=== PATIENT | female | born 1965 | race Caucasian/White ===

== ENCOUNTER 2021-10-07 17:04 | Outpatient (CLI) | payer OTHER, SELFPAY ==
--- NOTE | ~2021-10-07 | MM_ITS ---
EXAMINATION: MM screening lidia BI w markos HISTORY: Screening mammogram TECHNIQUE: Craniocaudal and mediolateral oblique 3-D tomosynthesis images were obtained and synthetic 2-D images were generated. CAD analysis was submitted and interpreted. COMPARISON: 11/07/2019, 09/07/2014, 08/22/2013 bilateral screening mammogram examinations BREAST PARENCHYMAL COMPOSITION: The breasts are almost entirely fatty. FINDINGS: There is no evidence of suspicious mass, calcification, or architectural distortion to sugg est malignancy in either breast. There has been no suspicious interval change. IMPRESSION: 1. No mammographic evidence of malignancy. 2. Recommend routine screening mammography in one year. BI-RADS Category 1: Negative Reviewed, dictated and finalized at location A. RY MANAGER
== END 2021-10-07 17:05 | disposition home or self-care (01) ==
PROVIDERS: PCP Nurse Practitioner Family; Visit Provider Nurse Practitioner Family
DX: Z12.31 Encounter for screening mammogram for malignant neoplasm of breast (principal)
CPT/HCPCS: 77063; 77067

== ENCOUNTER 2022-03-19 08:08 | Outpatient (CLI) | payer OTHER, SELFPAY ==
--- NOTE | ~2022-03-19 | US_ITS ---
EXAMINATION: US abdomen complete DATE: 03/19/2022 08:55 INDICATION: Abdominal cramping TECHNIQUE: Multiple grayscale and Doppler ultrasound images of the abdomen were obtained. COMPARISON: None FINDINGS: The pancreatic head and body are normal in appearance. The pancreatic tail is not visualized. Abdomi nal aorta is normal in caliber measuring 2.1 cm proximally and tapering to 1.4 cm distally. Portions of the mid aorta are obscured by shadowing bowel gas. The small visualized portion of the proximal in ferior vena cava is normal. Liver has normal echogenicity and contour, with a smooth surface. No live r lesion identified. No intrahepatic biliary duct dilation suspected. Portal venous flow was seen in the hepatopetal, normal direction and has normal Doppler waveform. Mobile echogenic sludge and shadow ing gallstones within the otherwise normal-appearing gallbladder with normal wall thickness. Sonograp hic Monique sign was reported as negative by the mixing pan tender. The common bile duct measures 3 mm in di ameter which is normal. There is normal renal contour and echogenicity bilaterally. The right kidney measures 10.5 x 3.9 x 4.6 cm and the left 9.8 x 4.8 x 5.0 cm. There are no focal renal lesions ident ified. There is no hydronephrosis. Spleen is normal measuring 9.8 cm in maximal length. IMPRESSION: 1. Cholelithiasis. Reviewed, dictated and finalized at location B. IMPRESSION: 1. Cholelithiasis.
== END 2022-03-19 08:09 | disposition home or self-care (01) ==
PROVIDERS: PCP Nurse Practitioner Family; Visit Provider Physician Assistant
DX: R10.9 Unspecified abdominal pain (principal); K80.20 Calculus of gallbladder without cholecystitis without obstruction
CPT/HCPCS: 76700

== ENCOUNTER 2022-07-04 12:45 | Inpatient (IN) | payer OTHER, SELFPAY ==
[2022-07-04] VITALS (9 sets, daily range): BP systolic 128–183; BP diastolic 58–88; PULSE 54–66; RESP 16–20; TEMP 36.2–36.9; O2SAT 97–100
--- NOTE | ~2022-07-04 | US_ITS ---
US abdomen limited DATE: 07/04/2022 13:45 INDICATION: Abdominal pain TECHNIQUE: Real-time imaging of liver, pancreas, gallbladder COMPARISON: 03/19/2022 abdominal ultrasound examination FINDINGS: No hepatic space-occupying mass lesion is evident. Normal hepatopedal portal venous flow di rection. The pancreatic head, neck and body appear normal. The pancreatic tail is obscured by bowel g as. There is a prominent stone at the neck of the gallbladder. Borderline gallbladder wall thickening. No pericholecystic fluid. Negative sonographic Monique's sign. Common bile duct measures 5.7 mm, within upper limits of normal. IMPRESSION: Cholelithiasis Reviewed, dictated and finalized at Location [facility]. Reviewed, dictated and finalized at location A. IMPRESSION: Cholelithiasis
--- NOTE | ~2022-07-04 | CT_ITS ---
EXAMINATION: CT abdomen pelvis w con DATE: 07/04/2022 14:20 INDICATION: abd pain TECHNIQUE: Computed tomography (CT) of the abdomen and pelvis was performed with 100 mL Omnipaque-350 intravenous contrast. Automated exposure control and iterative reconstruction technique were employe d. The dose-length product was 1210.91 mGy-cm. COMPARISON: Ultrasound abdomen, same date. FINDINGS: Lower thorax: Coronary artery calcification. Small hiatal hernia. Liver: Normal. Biliary/Gallbladder: Distended gallbladder. No definite pericholecystic fluid or wall thickening. Cho lelithiasis. Likely stone in the gallbladder neck. No bile duct dilation. Pancreas: No mass or duct dilation. Spleen: Normal. Adrenals:No mass. Kidneys: No mass, stone, or hydronephrosis. GI tract: No small or large bowel dilation. Normal appendix. Diverticulosis without diverticulitis. Mesentery/Peritoneum: No ascites, mass, or free air. Retroperitoneum: No mass. Pelvis: Partially distended urinary bladder slightly eccentric wall thickening. Minimal adjacent infl ammatory change. Remaining pelvic organs are within normal limits. Soft Tissues: Uncomplicated small fat-containing umbilical hernia. Bones: No acute osseous finding. IMPRESSION: Gallbladder hydrops, cholelithiasis, likely stone in the gallbladder neck. No significant gallbladder inflammatory change. These findings may represent early cholecystitis in the appropriate clinical co ntext. Eccentric urinary bladder wall thickening mild inflammation, correlate for clinical findings o f cystitis and consider referral for outpatient cystoscopy. Reviewed, dictated and finalized at location K. IMPRESSION: Gallbladder hydrops, cholelithiasis, likely stone in the gallbladder neck. No s ignificant gallbladder inflammatory change. These findings may represent early cholecystitis in the appropriate clinical context. Eccentric urinary bladder wa ll thickening mild inflammation, correlate for clinical findings of cystitis an d consider referral for outpatient cystoscopy.
[2022-07-04 13:14] LABS: Basophils Absolute Auto 0.1 K/mm3 (0.0-0.1); Basophils Percent Auto 0.3 % (0.2-1.2); Eosinophils Percent Auto 0.1 % (0-4.4); Hematocrit 40.8 % (37.0-47.0); Hemoglobin 13.6 g/dL (12.0-15.0); Immature Granulocyte Absolute 0.08 K/mm3 (0.00-0.031); Immature Granulocyte Percent A 0.5 % (0-0.5); Lymphocytes Absolute Auto 1.59 K/mm3 (0.9-3.2); Lymphocytes Percent Auto 9.4 % (18.3-44.2); Mean Corpuscular HGB Conc 33.3 g/dl (32-36); Mean Corpuscular Hemoglobin 29.2 pg (26-34); Mean Corpuscular Volume 87.6 fl (80-100); Mean Platelet Volume 9.9 fl (7.4-10.4); Monocytes Absolute Auto 0.6 K/mm3 (0.1-0.6); Monocytes Percent Auto 3.6 % (2.6-8.5); Neutrophils Absolute Auto 14.5 K/mm3 (1.3-6.7); Neutrophils Percent Auto 86.1 % (45.5-73.1); Platelet Count Result 293 k/mm3 (150-375); Red Blood Count 4.66 M/mm3 (4.2-5.4); Red Cell Distribution Width 14.2 % (11.5-14.5); White Blood Count 16.9 K/mm3 (4.5-10.0)
--- NOTE | 2022-07-04 13:15 | ED.GENADULT ---
HPI - General Adult General Chief complaint: Nausea/Vomiting/Diarrhea Stated complaint: nausea/vomiting Time Seen by Provider: 07/04/22 12:58 Source: RN notes reviewed History of Present Illness HPI narrative: Patient presents emergency department from home for abdominal pain. Patient states symptoms began 2 days ago. States pain is located epigastric and right upper quadrant described as sharp and stabbing and radiates around to the back. States has been associate with nausea vomiting. Patient states she was diagnosed with gallstones back in February and this feels similar to previous gallbladder attacks. States she tried taking ibuprofen at home with no relief. She denies any fevers or chills chest pain shortness of breath diarrhea or any other symptoms Related Data Allergies Allergy/AdvReac Type Severity Reaction Status Date / Time No Known Allergies Allergy Verified 07/04/22 13:42 Review of Systems Review of Systems: Gen.: Denies fevers or chills ENT: Denies congestion Respiratory: Denies shortness of breath or cough CV: Denies chest pain or palpitations GI: See HPI Musculoskeletal: Denies back pain or muscle pain Neuro: Denies numbness, tingling, weakness or focal weakness Skin: Denies rash Except as documented, all other systems reviewed and negative [facility] Past Medical History Medical History (Updated 07/04/22 @ 16:46 by Efren Winter DO) Cholelithiasis Social History Social History (Updated 07/04/22 @ 13:16 by Efren Winter DO) Smoking status: Never smoker Exam Narrative: APPEARANCE: No acute distress, nontoxic, resting in bed HEENT: Normocephalic, atraumatic, OMM RESPIRATORY: No respiratory distress, clear to auscultation bilaterally with no rhonchi wheezing or rales CARDIOVASCULAR: RRR s murmur ABDOMINAL: Soft nondistended tender palpation epigastric right upper quadrant no tenderness left upper quadrant, left lower quadrant right lower quadrant no rebound or guarding MUSCULOSKELETAl: Moves all extremities. No clubbing, cyanosis or edema. NEURO: Awake and alert. Following commands, speech normal, no focal deficits SKIN:: Warm, dry. Normal Color PSYCHIATRIC: Normal affect/mood Course Course Emergency Course: Discussed with Dr. Santa patient initially with improved pain control and plan to discharge with Cipro and follow-up as outpatient Intubated to take Cipro and had increased episode of abdominal pain and vomiting will admit at this time Discussed with Dr. Santa agrees to consult plan for Zosyn Discussed with RAFAELA Laguerre for Dr. Reid agrees with admission Discussed with patient and family results of workup and diagnosis. Discussed need for admission. Patient and family understand and agree to current treatment plan Vital Signs Vital signs: Vital Signs Temperature 97.6 F 07/04/22 12:48 Pulse Rate 66 07/04/22 12:48 Respiratory Rate 16 07/04/22 12:48 Blood Pressure 183/88 H 07/04/22 12:48 Pulse Oximetry 98 07/04/22 12:48 Temperature 97.6 F 07/04/22 12:48 Pulse Rate 65 07/04/22 16:34 Respiratory Rate 18 07/04/22 16:30 Blood Pressure 147/77 H 07/04/22 16:34 Pulse Oximetry 98 07/04/22 16:30 Medical Decision Making Vital Signs Vital Signs: Vital Signs Temperature 97.6 F 07/04/22 12:48 Pulse Rate 66 07/04/22 12:48 Respiratory Rate 16 07/04/22 12:48 Blood Pressure 183/88 H 07/04/22 12:48 Pulse Oximetry 98 07/04/22 12:48 Temperature 97.6 F 07/04/22 12:48 Pulse Rate 65 07/04/22 16:34 Respiratory Rate 18 07/04/22 16:30 Blood Pressure 147/77 H 07/04/22 16:34 Pulse Oximetry 98 07/04/22 16:30 Lab Data Result diagrams: 07/04/22 13:06 07/04/22 13:06 Labs: Lab Results 07/04/22 07/04/22 07/04/22 Range/Units 13:06 13:06 13:06 WBC 16.9 H (4.5-10.0) K/mm3 RBC 4.66 (4.2-5.4) M/mm3 Hgb 13.6 (12.0-15.0) g/dL Hct 40.8 (37.0-47.0) % MCV 87.6 (80-100) f
[2022-07-04] MEDS: ONDANSETRON INJ 4 MG/2 ML VIAL IV PUSH ×2 (13:26→20:06)
[2022-07-04] MEDS: FAMOTIDINE 20 MG/2 ML VIAL IV PUSH (13:26)
[2022-07-04] MEDS: SODIUM CHLORIDE 0.9% IV 1,000 ML 999 ML IV CONT (13:26)
[2022-07-04 13:27] LABS: Alanine Aminotransferase 23 U/L (6-35); Albumin Level 4.1 g/dL (3.5-5.1); Alkaline Phosphatase 95 U/L (38-126); Anion Gap 12 mmol/L (8-16); Aspartate Amino Transferase 30 U/L (14-36); Bilirubin,Total 0.6 mg/dL (0.2-1.3); Blood Urea Nitrogen 7 mg/dL (7-17); Calcium 8.6 mg/dL (8.4-10.2); Carbon Dioxide 24 mmol/L (22-30); Chloride 101 mmol/L (98-107); Estimated CRCL calculation 98 ml/min; Estimated Glomerular Filt Rate > 60; Glucose 135 mg/dL (65-110); Lipase 83 U/L (23-300); Potassium 3.7 mmol/L (3.4-5.0); Sodium 137 mmol/L (137-145)
[2022-07-04 14:12] LABS: Beta HCG Quantitative 4.24 mIU/ML
[2022-07-04 14:16] LABS: Appearance Urine Clear (Clear); Bilirubin Urine Negative (Negative); Color Urine Yellow (Yellow); Glucose Urine UA Negative (Negative); Ketones Urine 1+ mg/dL (Negative); Leukocyte Esterase Ur Negative LEU/UL (Negative); Nitrate Urine Negative (Negative); Protein Urine Negative (Negative); Urobilinogen Urine 0.2 mg/dL (<2.0)
[2022-07-04 14:35] LABS: Mucus Urine Rare /lpf; Squamous Epithelial Cell Urine Rare /hpf (Few)
[2022-07-04 14:43] LABS: Add Urine Microscopic? YES; Blood Urine Trace-Intact (Negative)
[2022-07-04] MEDS: MORPHINE SULFATE (*CRX) 2 MG/ML INJ IV PUSH (15:24)
[2022-07-04] MEDS: CIPROFLOXACIN 500 MG TAB PO (15:24)
[2022-07-04] MEDS: PROMETHAZINE HCL 25 MG/ML AMPUL 12.5 MG IV PUSH (16:12)
[2022-07-04] MEDS: SODIUM CHLORIDE 0.9% IV 1,000 ML 125 ML IV CONT (17:02)
--- NOTE | 2022-07-04 17:44 | ADMGEN ---
This patient, Marquis Ring, was admitted to Medical Room 258-. Patient/family oriented to hospital policies and general routines including ID bracelet, bed and alarms, visiting hours, pain management, procedures, bathroom and other care routines, personal items, smoking policy, room service/diet, and visiting hours. Information on how to activate the Rapid Response Team has been discussed. Patient/Family are encouraged to report perceived risks to care and to ask questions if they do not understand what they are told or what they should do.
--- NOTE | 2022-07-04 18:30 | PM.IMHP ---
H&P: HPI History of Present Illness Date/Time: 07/04/22 18:30 Chief Complaint: Abdominal pain. Narrative: This is a very pleasant 57-year-old female with history of gallstones who presented to the emergency department for evaluation of abdominal pain. Two nights ago she developed a pretty sudden onset of upper abdominal discomfort, more so on epigastric and right upper quadrant region, described as a constant throbbing pain. The pain has been so severe that she has not slept well the past couple of days and ibuprofen has not helped. She has also had chills, nausea, and several episodes of emesis which started today. She had similar symptoms on 2 separate occasions in February at which time she was diagnosed with cholelithiasis; she has never had a gallbladder attack this severe. She was hydrated and given IV pain medications and antiemetics in the emergency department and the plan was to discharge home with outpatient follow-up with General surgery however she continued to have pain, nausea, and vomiting and she is being admitted in this setting or supportive care. She has been started on IV antibiotics for possible acute cholecystitis. At the time my evaluation she is resting with improvement in her pain which has nearly resolved. She continues to have some mild nausea but she has not vomited for several hours. She denies fever. Review of Systems Review of Systems: Twelve systems were reviewed. No documented fever. No cold or flu symptoms. No chest pain or shortness of breath. No hematemesis. She had a monty colored stool at about 03:00 and had a normal looking albeit small bowel movement later this morning. No melena or hematochezia. Except as documented, all other systems were reviewed and are negative. [facility] Past Medical History Medical History (Updated 07/04/22 @ 23:48 by Carlotta Zurita PA-C) Cholelithiasis Surgical History Surgical History (Updated 07/04/22 @ 23:48 by Carlotta Zurita PA-C) History of appendectomy History of tubal ligation Family History Family History (Updated 07/04/22 @ 17:55 by Jigna Shea RN) Father Emphysema lung Grandparent Diabetes mellitus Social History Social History (Updated 07/04/22 @ 13:16 by Efren Winter DO) Smoking status: Never smoker Second hand tobacco smoke exposure: Yes (as a child) Alcohol intake: never Substance use: never Spiritual care concerns: No Meds Home Medications and Allergies Home Medications Medication Instructions Recorded Confirmed Type omeprazole 20 mg capsule,delayed 40 mg PO DAILY 07/04/22 07/04/22 History release Allergies Allergy/AdvReac Type Severity Reaction Status Date / Time aluminum chloride AdvReac Mild Rash Uncoded 07/04/22 17:52 Vital Signs Vital Signs - 24 hr 07/04/22 12:48 07/04/22 15:16 07/04/22 16:30 Temperature 97.6 F Pulse Rate 66 65 64 Respiratory Rate 16 20 18 Blood Pressure 183/88 H 134/67 143/67 H Pulse Oximetry 98 97 98 Oxygen Delivery 07/04/22 16:31 07/04/22 16:32 07/04/22 16:34 Temperature Pulse Rate 62 60 65 Respiratory Rate Blood Pressure 132/68 137/78 147/77 H Pulse Oximetry Oxygen Delivery 07/04/22 17:14 07/04/22 17:42 07/04/22 17:50 Temperature 97.2 F L Pulse Rate 64 54 L Respiratory Rate 18 18 Blood Pressure 128/65 137/62 Pulse Oximetry 98 100 Oxygen Delivery Room Air 07/04/22 20:06 Temperature 98.5 F Pulse Rate 61 Respiratory Rate 16 Blood Pressure 132/58 L Pulse Oximetry 100 Oxygen Delivery Exam Narrative: General: Mildly ill-appearing female supine in bed. Weight: 80.08 kilograms. BMI: 32.8. HEENT: PERRL, EOMI. Sclera anicteric. Tacky mucous membranes. Upper denture plate. Neck: Supple. Respiratory: Lungs are clear to auscultation bilaterally. Cardiovascular: Regular rate and rhythm with S1-S2. Gastrointestinal: Abdomen is soft and nondistended with positive bowel sounds. She is tender to deeper pa
[2022-07-04] MEDS: MORPHINE SULFATE (*CRX) 4 MG/ML INJ IV PUSH (20:06)
[2022-07-05] MEDS: SODIUM CHLORIDE 0.9% IV 1,000 ML 100 ML IV CONT ×2 (00:57→11:00)
[2022-07-05] MEDS: ONDANSETRON INJ 4 MG/2 ML VIAL IV PUSH ×3 (04:02→20:19)
[2022-07-05] MEDS: MORPHINE SULFATE (*CRX) 4 MG/ML INJ 2 MG IV PUSH ×2 (04:02→10:52)
[2022-07-05 06:00] VITALS: BP 123/53; PULSE 71; RESP 16; TEMP 37.1; O2SAT 92
[2022-07-05 06:15] LABS: Basophils Percent Auto 0.2 % (0.2-1.2); Eosinophils Percent Auto 0.1 % (0-4.4); Hematocrit 37.2 % (37.0-47.0); Hemoglobin 11.9 g/dL (12.0-15.0); Immature Granulocyte Absolute 0.13 K/mm3 (0.00-0.031); Immature Granulocyte Percent A 0.7 % (0-0.5); Lymphocytes Absolute Auto 2.19 K/mm3 (0.9-3.2); Lymphocytes Percent Auto 11.8 % (18.3-44.2); Mean Corpuscular Hemoglobin 29.6 pg (26-34); Mean Corpuscular Volume 92.5 fl (80-100); Mean Platelet Volume 10.4 fl (7.4-10.4); Monocytes Absolute Auto 1.4 K/mm3 (0.1-0.6); Monocytes Percent Auto 7.7 % (2.6-8.5); Neutrophils Absolute Auto 14.7 K/mm3 (1.3-6.7); Neutrophils Percent Auto 79.5 % (45.5-73.1); Platelet Count Result 276 k/mm3 (150-375); Red Blood Count 4.02 M/mm3 (4.2-5.4); Red Cell Distribution Width 14.7 % (11.5-14.5); White Blood Count 18.5 K/mm3 (4.5-10.0)
[2022-07-05 06:31] LABS: Alanine Aminotransferase 23 U/L (6-35); Albumin Level 3.4 g/dL (3.5-5.1); Alkaline Phosphatase 62 U/L (38-126); Anion Gap 8 mmol/L (8-16); Aspartate Amino Transferase 33 U/L (14-36); Blood Urea Nitrogen 8 mg/dL (7-17); Calcium 7.8 mg/dL (8.4-10.2); Carbon Dioxide 24 mmol/L (22-30); Chloride 107 mmol/L (98-107); Estimated CRCL calculation 85 ml/min; Estimated Glomerular Filt Rate > 60; Glucose 114 mg/dL (65-110); Potassium 3.7 mmol/L (3.4-5.0); Sodium 139 mmol/L (137-145)
[2022-07-05] MEDS: PANTOPRAZOLE SODIUM IV 40 MG VIAL IV PUSH (08:30)
--- NOTE | 2022-07-05 11:37 | PM.IMPN ---
Progress Note: A&P Assessment and Plan (1) Cholecystitis with cholelithiasis: Code(s): K80.10 - Calculus of gallbladder with chronic cholecystitis without obstruction Status: Acute Assessment and Plan: IV fluids, NPO IV antibiotics General surgical consult (2) Dehydration: Code(s): E86.0 - Dehydration Status: Acute Assessment and Plan: continue IV fluids Subjective Date/time seen: 07/05/22 11:37 still having some abdominal pain Exam Narrative: General: Mildly ill-appearing female supine in bed. Weight: 80.08 kilograms. BMI: 32.8. HEENT: PERRL, EOMI. Sclera anicteric. Tacky mucous membranes. Upper denture plate. Neck: Supple. Respiratory: Lungs are clear to auscultation bilaterally. Cardiovascular: Regular rate and rhythm with S1-S2. Gastrointestinal: Abdomen is soft and nondistended with positive bowel sounds. She is tender to deeper palpation in the right upper quadrant. Negative Monique sign. Skin: Warm and dry. No rash or lesions on limited exam. Extremities: No cyanosis, clubbing, or edema. Radial and pedal pulses intact. Neurological: Alert. Cranial nerves 2-12 are grossly intact. No gross focal deficits to casual conversation. Psychiatric: Pleasant and cooperative with normal mood and affect. Judgment and insight intact. Objective Data Vital Signs Vital Signs: Vital Signs - 24 hr 07/04/22 12:48 07/04/22 15:16 07/04/22 16:30 Temperature 97.6 F Pulse Rate 66 65 64 Respiratory Rate 16 20 18 Blood Pressure 183/88 H 134/67 143/67 H Pulse Oximetry 98 97 98 Oxygen Delivery 07/04/22 16:31 07/04/22 16:32 07/04/22 16:34 Temperature Pulse Rate 62 60 65 Respiratory Rate Blood Pressure 132/68 137/78 147/77 H Pulse Oximetry Oxygen Delivery 07/04/22 17:14 07/04/22 17:42 07/04/22 17:50 Temperature 97.2 F L Pulse Rate 64 54 L Respiratory Rate 18 18 Blood Pressure 128/65 137/62 Pulse Oximetry 98 100 Oxygen Delivery Room Air 07/04/22 20:06 07/05/22 06:00 07/05/22 08:35 Temperature 98.5 F 98.8 F Pulse Rate 61 71 Respiratory Rate 16 16 Blood Pressure 132/58 L 123/53 L Pulse Oximetry 100 92 Oxygen Delivery Room Air Intake/Output Intake/Output: Intake & Output 07/02/22 07/03/22 07/04/22 07/05/22 23:59 23:59 23:59 23:59 Intake Total 1150 2200 Balance 1150 2200 Meds/Results Medications: Active Medications Generic Name Dose Route Start Last Admin Trade Name Freq PRN Reason Stop Dose Admin Piperacillin/Tazobactam/Dextrose 3.375 gm in 50 mls @ 100 mls/hr 07/05/22 00:00 07/05/22 11:00 Zosyn 3.375 Gm/D5w 50ml Pm IVPB 100 mls/hr Q6H ARTIE Administration Sodium Chloride 1,000 mls @ 100 mls/hr 07/04/22 16:45 07/05/22 11:00 Normal Saline Iv IV CONT 100 mls/hr .Q10H ARTIE Administration Morphine Sulfate 2 mg 07/04/22 23:50 07/05/22 10:52 Morphine Sulfate (*Crx) 4 Mg/Ml Inj IV PUSH 2 mg Q4H PRN Administration Pain Rated 7-10 Ondansetron HCl 4 mg 07/04/22 16:43 07/05/22 10:52 Ondansetron Inj 4 Mg/2 Ml Vial IV PUSH 4 mg Q4H PRN Administration Nausea Pantoprazole Sodium 40 mg 07/05/22 09:00 07/05/22 08:30 Pantoprazole Sodium Iv 40 Mg Vial IV PUSH 40 mg QAM ARTIE Administration Radiology Results: ITS Impressions Abdomen Ultrasound 07/04/22 13:53 IMPRESSION: Cholelithiasis Abdomen/Pelvis CT 07/04/22 14:34 IMPRESSION: Gallbladder hydrops, cholelithiasis, likely stone in the gallbladder neck. No significant gallbladder inflammatory change. These findings may represent early cholecystitis in the appropriate clinical context. Eccentric urinary bladder wall thickening mild inflammation, correlate for clinical findings of cystitis and consider referral for outpatient cystoscopy. ADDENDUM: 07/04/22 [id number] The findings section in the initial report contains a dictation error, the appendix was not visualized since examination. There
--- NOTE | 2022-07-05 13:48 | PM.CNGS ---
Assessment and Plan Assessment and plan (1) Cholecystitis with cholelithiasis: Code(s): K80.10 - Calculus of gallbladder with chronic cholecystitis without obstruction Status: Acute Assessment and Plan: seems to be improving with antibiotics and analgesics. Will start clear liquids. Continue present treatment. If pain resolves, patient may possibly go home and come back for surgery as an outpatient. If does not resolve, will need to proceed with laparoscopic cholecystectomy during this hospital stay. I discussed this with the patient as well as described the surgery. I will follow along with you. Thanks for asking me to see this patient in consultation. History of Present Illness Consult details Consult date: 07/05/22 Reason for consult: abdominal pain Requesting physician: Efren Winter DO Narrative: Patient is a 57-year-old woman who presented to the emergency room later in the day yesterday with severe right upper quadrant abdominal pain and epigastric pain. The pain had been going on for couple of days and radiated around to her back. She was also having nausea and vomiting. She pretty well new what this was as she had had similar pains, although not as severe, back in February. Ultrasound March 19 did show gallstones but no cholecystitis. Patient was evaluated in the emergency room [place] [id number]. Her liver function tests were normal. She had tenderness in the right upper quadrant. Her CT scan suggested hydrops with the stone in the neck of the gallbladder. However ultrasound was negative for a Monique sign and also did show a stone in the neck of the gallbladder. The patient was feeling better in the emergency room and it was thought she might be able to go home and follow-up as an outpatient. But her pain as well as nausea and vomiting recurred. She has been since admitted and started on IV antibiotics. This afternoon, she is still having some pain that takes pain medication to resolve but overall feels much better than she did yesterday. Her only previous surgeries were an appendectomy and tubal ligation. She is generally healthy, taking only omeprazole. She is not a smoker. She is seen now in consultation regarding gallstones and cholecystitis. Review of Systems Review of Systems: All systems reviewed & are unremarkable except as noted in HPI and below ( HPI and those items noted below) Constitutional: Constitutional: Denies chills and Denies fever(s) Cardiovascular: Cardiovascular: Denies chest pain, Denies diaphoresis, Denies dyspnea and Denies paroxysmal nocturnal dyspnea Respiratory: Respiratory: Denies chest congestion, Denies cough and Denies dyspnea Gastrointestinal: Gastrointestinal: Reports abdominal pain and Reports vomiting Integumentary/Breasts: Skin/Breast: Denies lesions and Denies rash [facility] Past Medical History Medical History (Updated 07/04/22 @ 23:48 by Carlotta Zurita PA-C) Cholelithiasis Surgical History Surgical History (Updated 07/04/22 @ 23:48 by Carlotta Zurita PA-C) History of appendectomy History of tubal ligation Family History Family History (Updated 07/04/22 @ 17:55 by Jigna Shea RN) Father Emphysema lung Grandparent Diabetes mellitus Social History Social History (Updated 07/04/22 @ 13:16 by Efren Winter DO) Smoking status: Never smoker Second hand tobacco smoke exposure: Yes (as a child) Alcohol intake: never Substance use: never Spiritual care concerns: No Meds Home Medications and Allergies Home Medications Medication Instructions Recorded Confirmed Type omeprazole 20 mg capsule,delayed 40 mg PO DAILY 07/04/22 07/04/22 History release Allergies Allergy/AdvReac Type Severity Reaction Status Date / Time aluminum chloride AdvReac Mild Rash Uncoded 07/04/22 17:52 Vital Signs Vital Signs - 24 hr 07/04/22 15:16 07/04/22 16:30 07/04/22 16:31 T
[2022-07-05] MEDS: ENOXAPARIN 40 MG/0.4 ML SYRINGE SUB-Q (14:40)
[2022-07-05 16:52] VITALS: BP 121/55; PULSE 75; RESP 16; TEMP 37.2; O2SAT 93
[2022-07-05 19:24] VITALS: BP 126/58; PULSE 71; RESP 18; TEMP 37.9; O2SAT 96
[2022-07-05 20:16] VITALS: TEMP 37.9
[2022-07-05] MEDS: HYDROcodone/acetaminophen (*CRX) 5-325 MG TABLET 1 TAB PO (20:16)
[2022-07-05] MEDS: ACETAMINOPHEN 500 MG TABLET PO (20:16)
[2022-07-05] MEDS: SODIUM CHLORIDE 0.9% IV 1,000 ML 80 ML IV CONT (22:12)
[2022-07-06 03:37] VITALS: BP 131/59; PULSE 71; RESP 18; TEMP 37.1; O2SAT 85
[2022-07-06 03:51] VITALS: O2SAT 96
[2022-07-06 05:24] LABS: Hematocrit 32.6 % (37.0-47.0); Hemoglobin 10.5 g/dL (12.0-15.0); Mean Corpuscular HGB Conc 32.2 g/dl (32-36); Mean Corpuscular Hemoglobin 29.7 pg (26-34); Mean Corpuscular Volume 92.1 fl (80-100); Mean Platelet Volume 10.4 fl (7.4-10.4); Platelet Count Result 206 k/mm3 (150-375); Red Blood Count 3.54 M/mm3 (4.2-5.4); Red Cell Distribution Width 14.6 % (11.5-14.5)
[2022-07-06 05:31] LABS: Alanine Aminotransferase 21 U/L (6-35); Albumin Level 2.9 g/dL (3.5-5.1); Alkaline Phosphatase 64 U/L (38-126); Anion Gap 9 mmol/L (8-16); Aspartate Amino Transferase 27 U/L (14-36); Bilirubin,Total 0.9 mg/dL (0.2-1.3); Blood Urea Nitrogen 8 mg/dL (7-17); Calcium 7.5 mg/dL (8.4-10.2); Carbon Dioxide 27 mmol/L (22-30); Chloride 104 mmol/L (98-107); Estimated CRCL calculation 75 ml/min; Estimated Glomerular Filt Rate > 60; Glucose 100 mg/dL (65-110); Lipase 27 U/L (23-300); Potassium 3.2 mmol/L (3.4-5.0); Sodium 140 mmol/L (137-145)
[2022-07-06 08:49] VITALS: TEMP 37.7
[2022-07-06] MEDS: PANTOPRAZOLE SODIUM IV 40 MG VIAL IV PUSH (09:22)
[2022-07-06] MEDS: POTASSIUM CHLORIDE 20 MEQ PACKET (FOR LIQUID) 40 MEQ PO (09:22)
--- NOTE | 2022-07-06 10:46 | PM.IMPN ---
Progress Note: A&P Assessment and Plan (1) Cholecystitis with cholelithiasis: Code(s): K80.10 - Calculus of gallbladder with chronic cholecystitis without obstruction Status: Acute Assessment and Plan: plan for surgery at some point. Will defer to surgery. Still having low-grade temp continue IV antibiotics. (2) Dehydration: Code(s): E86.0 - Dehydration Status: Acute Assessment and Plan: IV fluids, resolved Subjective Date/time seen: 07/06/22 10:46 patient is still having ongoing abdominal pain, nausea. She does not feel like she is any better today Exam Narrative: General: Mildly ill-appearing female supine in bed. Weight: 80.08 kilograms. BMI: 32.8. HEENT: PERRL, EOMI. Sclera anicteric. Tacky mucous membranes. Upper denture plate. Neck: Supple. Respiratory: Lungs are clear to auscultation bilaterally. Cardiovascular: Regular rate and rhythm with S1-S2. Gastrointestinal: Abdomen is soft and nondistended with positive bowel sounds. She is tender to deeper palpation in the right upper quadrant. Negative Monique sign. Skin: Warm and dry. No rash or lesions on limited exam. Extremities: No cyanosis, clubbing, or edema. Radial and pedal pulses intact. Neurological: Alert. Cranial nerves 2-12 are grossly intact. No gross focal deficits to casual conversation. Psychiatric: Pleasant and cooperative with normal mood and affect. Judgment and insight intact. Objective Data Vital Signs Vital Signs: Vital Signs - 24 hr 07/05/22 16:52 07/05/22 19:24 07/05/22 20:16 Temperature 99.0 F 100.2 F H 100.2 F H Pulse Rate 75 71 Respiratory Rate 16 18 Blood Pressure 121/55 L 126/58 L Pulse Oximetry 93 96 07/06/22 03:37 07/06/22 03:51 07/06/22 08:49 Temperature 98.7 F 99.8 F H Pulse Rate 71 Respiratory Rate 18 Blood Pressure 131/59 L Pulse Oximetry 85 L 96 Intake/Output Intake/Output: Intake & Output 07/03/22 07/04/22 07/05/22 07/06/22 23:59 23:59 23:59 23:59 Intake Total 1150 3700 50 Balance 1150 3700 50 Meds/Results Medications: Active Medications Generic Name Dose Route Start Last Admin Trade Name Freq PRN Reason Stop Dose Admin Acetaminophen 500 mg 07/05/22 13:56 07/05/22 20:16 Acetaminophen 500 Mg Tablet PO 500 mg Q6H PRN Administration Mild Pain (1-3) or Fever Hydrocodone Bitart/Acetaminophen 1 tab 07/05/22 13:56 07/05/22 20:16 Hydrocodone/Acetaminophen (*Crx) 5-325 Mg Tablet PO 1 tab Q4H PRN Administration Pain Rated 4-6 Hydrocodone Bitart/Acetaminophen 1 tab 07/05/22 13:56 Hydrocodone/Acetaminophen (*Crx) 10-325 Mg Tablet PO Q4H PRN Pain Rated 7-10 Piperacillin/Tazobactam/Dextrose 3.375 gm in 50 mls @ 100 mls/hr 07/05/22 00:00 07/06/22 05:13 Zosyn 3.375 Gm/D5w 50ml Pm IVPB Infused Q6H ARTIE Infusion Sodium Chloride 1,000 mls @ 80 mls/hr 07/04/22 16:45 07/05/22 22:12 Normal Saline Iv IV CONT 80 mls/hr .[id number] ARTIE Administration Ibuprofen 800 mg in 200 mls @ 400 mls/hr 07/05/22 13:56 Caldolor 800 Mg/200 Ml IVPB Q6H PRN Pain Rated 1-3 Morphine Sulfate 2 mg 07/05/22 13:56 Morphine Sulfate (*Crx) 2 Mg/Ml Inj IV PUSH Q2H PRN Pain Rated 4-6 Morphine Sulfate 4 mg 07/05/22 13:56 Morphine Sulfate (*Crx) 4 Mg/Ml Inj IV PUSH Q2H PRN Pain Rated 7-10 Naloxone HCl 0.1 mg 07/05/22 13:56 Naloxone Hcl 0.4 Mg/Ml Vial IV PUSH Q2M PRN Opiate Reversal Ondansetron HCl 4 mg 07/04/22 16:43 07/05/22 20:19 Ondansetron Inj 4 Mg/2 Ml Vial IV PUSH 4 mg Q4H PRN Administration Nausea Pantoprazole Sodium 40 mg 07/05/22 09:00 07/06/22 09:22 Pantoprazole Sodium Iv 40 Mg Vial IV PUSH 40 mg QAM ARTIE Administration Radiology Results: ITS Impressions Abdomen Ultrasound 07/04/22 13:53 IMPRESSION: Cholelithiasis Abdomen/Pelvis CT 07/04/22 14:34 IMPRESSION: Gallbladder hyd
[2022-07-06] MEDS: SODIUM CHLORIDE 0.9% IV 1,000 ML 80 ML IV CONT (11:43)
[2022-07-06 14:00] VITALS: BP 144/72; PULSE 76; RESP 19; TEMP 37.1; O2SAT 97
--- NOTE | 2022-07-06 16:13 | PM.PNGS ---
Progress Note: A&P Assessment and Plan (1) Cholecystitis with cholelithiasis: Code(s): K80.10 - Calculus of gallbladder with chronic cholecystitis without obstruction Status: Acute Assessment and Plan: pain improving. Tolerating liquids but little appetite. Abdomen is less tender and white blood cell count is slightly lower than yesterday. LFTs are normal. Continue clear liquids and IV antibiotics. Repeat labs and exam again tomorrow morning. Subjective Subjective Date/Time Seen: 07/06/22 16:13 Patient reports: pain is less, tolerating liquids well and afebrile Interval history: pain is definitely better today. Still not much appetite. Does not feel well. Prefers to stay on clear liquids. Review of Systems Review of Systems: All systems reviewed & are unremarkable except as noted in HPI and below ( HPI) Exam Const: General: cooperative, comfortable, no acute distress, alert and awake Orientation/consciousness: patient oriented x3 GI: Inspection: normal to inspection and non-distended GI Palp: Yes Soft to palpation, Yes Tenderness to palpation present (GI) ( mild right upper quadrant tenderness), No Guarding due to palpation present (GI), No Palpable mass present and No Rebound tenderness present Neuro: General: patient oriented x3, no focal motor deficits and No confusion Extrem: General: no calf tenderness and no edema Objective Data Vital Signs Vital Signs: Vital Signs - 24 hr 07/05/22 16:52 07/05/22 19:24 07/05/22 20:16 Temperature 37.2 C 37.9 C H 37.9 C H Pulse Rate 75 71 Respiratory Rate 16 18 Blood Pressure 121/55 L 126/58 L Pulse Oximetry 93 96 Oxygen Delivery 07/06/22 03:37 07/06/22 03:51 07/06/22 08:49 Temperature 37.1 C 37.7 C H Pulse Rate 71 Respiratory Rate 18 Blood Pressure 131/59 L Pulse Oximetry 85 L 96 Oxygen Delivery 07/06/22 09:22 07/06/22 14:00 Temperature 37.1 C Pulse Rate 76 Respiratory Rate 19 Blood Pressure 144/72 H Pulse Oximetry 97 Oxygen Delivery Room Air Intake/Output Intake/Output: Intake & Output 07/03/22 07/04/22 07/05/22 07/06/22 23:59 23:59 23:59 23:59 Intake Total 1150 3700 1100 Balance 1150 3700 1100 Meds/Results Medications: Active Medications Generic Name Dose Route Start Last Admin Trade Name Freq PRN Reason Stop Dose Admin Acetaminophen 500 mg 07/05/22 13:56 07/05/22 20:16 Acetaminophen 500 Mg Tablet PO 500 mg Q6H PRN Administration Mild Pain (1-3) or Fever Hydrocodone Bitart/Acetaminophen 1 tab 07/05/22 13:56 07/05/22 20:16 Hydrocodone/Acetaminophen (*Crx) 5-325 Mg Tablet PO 1 tab Q4H PRN Administration Pain Rated 4-6 Hydrocodone Bitart/Acetaminophen 1 tab 07/05/22 13:56 Hydrocodone/Acetaminophen (*Crx) 10-325 Mg Tablet PO Q4H PRN Pain Rated 7-10 Piperacillin/Tazobactam/Dextrose 3.375 gm in 50 mls @ 100 mls/hr 07/05/22 00:00 07/06/22 14:10 Zosyn 3.375 Gm/D5w 50ml Pm IVPB Infused Q6H ARTIE Infusion Sodium Chloride 1,000 mls @ 80 mls/hr 07/04/22 16:45 07/06/22 11:43 Normal Saline Iv IV CONT 80 mls/hr .[id number] ARTIE Administration Ibuprofen 800 mg in 200 mls @ 400 mls/hr 07/05/22 13:56 Caldolor 800 Mg/200 Ml IVPB Q6H PRN Pain Rated 1-3 Morphine Sulfate 2 mg 07/05/22 13:56 Morphine Sulfate (*Crx) 2 Mg/Ml Inj IV PUSH Q2H PRN Pain Rated 4-6 Morphine Sulfate 4 mg 07/05/22 13:56 Morphine Sulfate (*Crx) 4 Mg/Ml Inj IV PUSH Q2H PRN Pain Rated 7-10 Naloxone HCl 0.1 mg 07/05/22 13:56 Naloxone Hcl 0.4 Mg/Ml Vial IV PUSH Q2M PRN Opiate Reversal Ondansetron HCl 4 mg 07/04/22 16:43 07/05/22 20:19 Ondansetron Inj 4 Mg/2 Ml Vial IV PUSH 4 mg Q4H PRN Administration Nausea Pantoprazole Sodium 40 mg 07/05/22 09:00 07/06/22 09:22 Pantoprazole Sodium Iv 40 Mg Vial IV PUSH 40 mg QAM ARTIE Administration Radiology Results: ITS Impress
[2022-07-06] MEDS: HYDROcodone/acetaminophen (*CRX) 10-325 MG TABLET 1 TAB PO (17:08)
[2022-07-06] MEDS: ONDANSETRON INJ 4 MG/2 ML VIAL IV PUSH (17:10)
[2022-07-06 19:22] VITALS: BP 111/78; PULSE 77; RESP 18; TEMP 36.6; O2SAT 95
[2022-07-07] MEDS: SODIUM CHLORIDE 0.9% IV 1,000 ML 80 ML IV CONT (03:34)
[2022-07-07 04:19] VITALS: BP 132/64; PULSE 80; RESP 20; TEMP 37.2; O2SAT 94
[2022-07-07] MEDS: ACETAMINOPHEN 500 MG TABLET PO (05:10)
[2022-07-07 05:32] LABS: Hematocrit 32.8 % (37.0-47.0); Hemoglobin 10.4 g/dL (12.0-15.0); Mean Corpuscular HGB Conc 31.7 g/dl (32-36); Mean Corpuscular Hemoglobin 29.6 pg (26-34); Mean Corpuscular Volume 93.4 fl (80-100); Mean Platelet Volume 10.5 fl (7.4-10.4); Platelet Count Result 226 k/mm3 (150-375); Red Blood Count 3.51 M/mm3 (4.2-5.4); Red Cell Distribution Width 14.7 % (11.5-14.5); White Blood Count 13.3 K/mm3 (4.5-10.0)
[2022-07-07 05:55] LABS: Alanine Aminotransferase 19 U/L (6-35); Alkaline Phosphatase 78 U/L (38-126); Anion Gap 11 mmol/L (8-16); Aspartate Amino Transferase 26 U/L (14-36); Bilirubin,Total 0.7 mg/dL (0.2-1.3); Blood Urea Nitrogen 4 mg/dL (7-17); Calcium 7.4 mg/dL (8.4-10.2); Carbon Dioxide 25 mmol/L (22-30); Chloride 103 mmol/L (98-107); Estimated CRCL calculation 89 ml/min; Estimated Glomerular Filt Rate > 60; Glucose 106 mg/dL (65-110); Sodium 139 mmol/L (137-145)
[2022-07-07] MEDS: PANTOPRAZOLE SODIUM IV 40 MG VIAL IV PUSH (08:05)
--- NOTE | 2022-07-07 08:59 | PM.PNGS ---
Progress Note: A&P Assessment and Plan (1) Cholecystitis with cholelithiasis: Code(s): K80.10 - Calculus of gallbladder with chronic cholecystitis without obstruction Status: Acute Assessment and Plan: patient much improved. I discussed with Dr. Russell, hospitalist. Okay to discharge today on low-fat diet. She will stay on ciprofloxacin and metronidazole. Plan to proceed with laparoscopic cholecystectomy as an outpatient on Wednesday07/14/2022. Patient is comfortable and agreeable with this plan. Also will need some [place] on discharge. Subjective Subjective Date/Time Seen: 07/07/22 08:59 Patient reports: feels better, pain is less and diarrhea Interval history: Patient tolerating liquids well. Still gets some intermittent pain but easily relieved with [place]. She is having some loose stools. Feels much better than she did on admission. Review of Systems Review of Systems: All systems reviewed & are unremarkable except as noted in HPI and below ( HPI) Exam Const: General: cooperative, comfortable, no acute distress, alert and awake Nutritional Appearance: average body habitus Orientation/consciousness: patient oriented x3 GI: Inspection: normal to inspection and non-distended GI Palp: Yes Soft to palpation, No Tenderness to palpation present (GI), No Guarding due to palpation present (GI) and No Palpable mass present Auscultation: normal bowel sounds Objective Data Vital Signs Vital Signs: Vital Signs - 24 hr 07/06/22 09:22 07/06/22 14:00 07/06/22 19:22 Temperature 37.1 C 36.6 C Pulse Rate 76 77 Respiratory Rate 19 18 Blood Pressure 144/72 H 111/78 Pulse Oximetry 97 95 Oxygen Delivery Room Air 07/07/22 04:19 Temperature 37.2 C Pulse Rate 80 Respiratory Rate 20 Blood Pressure 132/64 Pulse Oximetry 94 Oxygen Delivery Intake/Output Intake/Output: Intake & Output 07/04/22 07/05/22 07/06/22 07/07/22 23:59 23:59 23:59 23:59 Intake Total 1150 3700 1450 1440 Balance 1150 3700 1450 1440 Meds/Results Medications: Active Medications Generic Name Dose Route Start Last Admin Trade Name Freq PRN Reason Stop Dose Admin Acetaminophen 500 mg 07/05/22 13:56 07/07/22 05:10 Acetaminophen 500 Mg Tablet PO 500 mg Q6H PRN Administration Mild Pain (1-3) or Fever Hydrocodone Bitart/Acetaminophen 1 tab 07/05/22 13:56 07/05/22 20:16 Hydrocodone/Acetaminophen (*Crx) 5-325 Mg Tablet PO 1 tab Q4H PRN Administration Pain Rated 4-6 Hydrocodone Bitart/Acetaminophen 1 tab 07/05/22 13:56 07/06/22 17:08 Hydrocodone/Acetaminophen (*Crx) 10-325 Mg Tablet PO 1 tab Q4H PRN Administration Pain Rated 7-10 Piperacillin/Tazobactam/Dextrose 3.375 gm in 50 mls @ 100 mls/hr 07/05/22 00:00 07/07/22 05:38 Zosyn 3.375 Gm/D5w 50ml Pm IVPB Infused Q6H ARTIE Infusion Sodium Chloride 1,000 mls @ 80 mls/hr 07/04/22 16:45 07/07/22 03:34 Normal Saline Iv IV CONT 80 mls/hr .[id number] ARTIE Administration Ibuprofen 800 mg in 200 mls @ 400 mls/hr 07/05/22 13:56 Caldolor 800 Mg/200 Ml IVPB Q6H PRN Pain Rated 1-3 Morphine Sulfate 2 mg 07/05/22 13:56 Morphine Sulfate (*Crx) 2 Mg/Ml Inj IV PUSH Q2H PRN Pain Rated 4-6 Morphine Sulfate 4 mg 07/05/22 13:56 Morphine Sulfate (*Crx) 4 Mg/Ml Inj IV PUSH Q2H PRN Pain Rated 7-10 Naloxone HCl 0.1 mg 07/05/22 13:56 Naloxone Hcl 0.4 Mg/Ml Vial IV PUSH Q2M PRN Opiate Reversal Ondansetron HCl 4 mg 07/04/22 16:43 07/06/22 17:10 Ondansetron Inj 4 Mg/2 Ml Vial IV PUSH 4 mg Q4H PRN Administration Nausea Pantoprazole Sodium 40 mg 07/05/22 09:00 07/07/22 08:05 Pantoprazole Sodium Iv 40 Mg Vial IV PUSH 40 mg QAM ARTIE Administration Radiology Results: ITS Impressions Abdomen Ultrasound 07/04/22 13:53 IMPRESSION: Cholelithiasis Abdomen/Pelvis CT 07/04/22 14:34 IMPRESSION: Gallbladder hydrops, cho
--- NOTE | 2022-07-07 10:26 | PM.DS ---
DS: Admitting Diagnosis Discharge Date July 07, 2022 Admitting Diagnosis acute cholecystitis DS: Discharge Diagnosis Discharge Diagnosis (1) Cholecystitis with cholelithiasis: Code(s): K80.10 - Calculus of gallbladder with chronic cholecystitis without obstruction Status: Acute Assessment and Plan: plan for surgery at some point. Will defer to surgery. Still having low-grade temp continue oral antibiotics on dischar (2) Dehydration: Code(s): E86.0 - Dehydration Status: Acute Assessment and Plan: IV fluids, resolved DS: Summary Hospital Course Hospital Course: patient is a 57 old female came in with acute cholecystitis. She was treated conservatively initially and labs and she was able to tolerate a diet. She will be sent home on oral antibiotics and can follow up with surgery on the 20 have cholecystectomy. Time Spent with Patient Time attestation: Total time spent providing and/or coordinating discharge services: Exam Narrative: General: Mildly ill-appearing female supine in bed. Weight: 80.08 kilograms. BMI: 32.8. HEENT: PERRL, EOMI. Sclera anicteric. Tacky mucous membranes. Upper denture plate. Neck: Supple. Respiratory: Lungs are clear to auscultation bilaterally. Cardiovascular: Regular rate and rhythm with S1-S2. Gastrointestinal: Abdomen is soft and nondistended with positive bowel sounds. She is tender to deeper palpation in the right upper quadrant. Negative Monique sign. Skin: Warm and dry. No rash or lesions on limited exam. Extremities: No cyanosis, clubbing, or edema. Radial and pedal pulses intact. Neurological: Alert. Cranial nerves 2-12 are grossly intact. No gross focal deficits to casual conversation. Psychiatric: Pleasant and cooperative with normal mood and affect. Judgment and insight intact. DS: Data Data Completed and Pending Labs on day of discharge: Labs from last 24 hours 07/07/22 07/07/22 05:03 05:03 WBC 13.3 H RBC 3.51 L Hgb 10.4 L Hct 32.8 L MCV 93.4 MCH 29.6 MCHC 31.7 L RDW 14.7 H Plt Count 226 MPV 10.5 H Sodium 139 Potassium 3.0 L Chloride 103 Carbon Dioxide 25 Anion Gap 11 BUN 4 L Creatinine 0.70 Estim Creat Clear Calc 89 Estimated GFR > 60 Glucose 106 Calcium 7.4 L Total Bilirubin 0.7 AST 26 ALT 19 Alkaline Phosphatase 78 Total Protein 6.0 L Albumin 3.0 L Discharge Plan Discharge Attending physician on discharge: Stu Russell Consulting providers: Tara Ponce ; Vincent Santa Discharging Clinician: Stu Russell Patient Disposition: Home, Self-Care Activity: as tolerated and no preference Diet: as tolerated and low fat Patient Instructions: Antibiotic Form, Pain Management (DC) Stand Alone Forms: General Discharge Information Follow-up/Referrals: Vincent Santa MD [Physician] - ( Dr. Santa's office will call patient and schedule gallbladder surgery for 07/14/2022 as an outpatient.) Discharge Medications: New hydrocodone-acetaminophen 5-325 mg tablet 1 - 2 tablet PO Q6H PRN (Reason: pain) Qty: 20 0RF metronidazole 500 mg tablet 500 mg PO TID Qty: 14 0RF ciprofloxacin HCl 500 mg tablet 500 mg PO Q12H Qty: 10 0RF No Action omeprazole 20 mg capsule,delayed release(/EC) 40 mg PO DAILY Date of admission: 07/06/22 16:09 Primary Care Provider: Javier,Feng Jernigan Admitting Provider: Augustin Reid Attending physician on admission: Augustin Reid Condition: Stable
== END 2022-07-07 13:00 | disposition home or self-care (01) ==
LOC: ANHED 16:46 → ANH2MED 17:18
PROVIDERS: Emergency Medicine; Surgery; Admitting Provider Family Medicine; Emergency Provider Emergency Medicine; PCP Family Medicine; Visit Provider Chiropractor
DX: K80.00 Calculus of gallbladder with acute cholecystitis without obstruction (principal); E86.0 Dehydration
CPT/HCPCS: 36415; 74177; 76705; 80053; 81001; 83690; 83735; 84702; 85025; 85027; 96361; 96365; 96367; 96372; 96375; 96376; 99285; A9270; C9113; G0378; G0379; J0131; J1650; J2270; J2405; J2543; J2550; J7030; Q9967

== ENCOUNTER 2022-07-13 09:16 | Outpatient (CLI) | payer OTHER, SELFPAY ==
[2022-07-13 10:49] LABS: Alanine Aminotransferase 25 U/L (6-35); Albumin Level 3.8 g/dL (3.5-5.1); Alkaline Phosphatase 105 U/L (38-126); Amylase 61 U/L (30-110); Anion Gap 12 mmol/L (8-16); Aspartate Amino Transferase 40 U/L (14-36); Bilirubin,Total 0.4 mg/dL (0.2-1.3); Blood Urea Nitrogen 6 mg/dL (7-17); Calcium 8.4 mg/dL (8.4-10.2); Carbon Dioxide 26 mmol/L (22-30); Chloride 105 mmol/L (98-107); Estimated Glomerular Filt Rate > 60; Glucose 110 mg/dL (65-110); Lipase 153 U/L (23-300); Potassium 3.2 mmol/L (3.4-5.0); Sodium 143 mmol/L (137-145)
== END 2022-07-13 09:17 | disposition home or self-care (01) ==
PROVIDERS: PCP Family Medicine; Visit Provider Surgery
DX: K80.10 Calculus of gallbladder with chronic cholecystitis without obstruction (principal); E87.6 Hypokalemia; Z01.818 Encounter for other preprocedural examination
CPT/HCPCS: 36415; 80053; 82150; 82248; 83690; 86850; 86900; 86901

== ENCOUNTER 2022-07-15 02:01 | Day surgery (SDC) | payer OTHER, SELFPAY ==
[2022-07-09 13:21] VITALS: BMI 34.4
--- NOTE | 2022-07-09 14:49 | PC.NURSE ---
Report to the Outpatient Waiting Room, entrance under the green pavilion located off [facility], at time _11:30AM on date _07/15/22_. SURGERY Time: __1:30PM_. Time changes happen often and if your time is changed the preop area will call you the afternoon before. - You and your visitor will be asked to self-screen and do not enter if you have any COVID symptoms. - Only one visitor and NO children visitors are allowed at this time. - The patient visitor is requested to leave or wait in car when not with patient due to restrictions. - A mask is required within the hospital. Patients may have clear liquids (water, carbonated beverages, clear teas, apple juice) until 3 hours prior to surgery (10:30 AM) with a maximum of 20 ounces. - No food from midnight until time of surgery - Take the following medications with a SIP of water the morning of surgery: _PAIN PILL IF NEEDED; ANY REMAING ANTIBIOTICS Medications to discontinue per physician N/A Date to take last dose N/A Please no make-up, nail icelandic, hairspray, perfume, deodorant, or body powder the day of surgery. No jewelry (including any body piercings) or valuables the day of surgery, leave them at home. Please take a shower or bath the night before, or the morning of, surgery with an antibacterial soap CALLED HIBICLENS. Wear comfortable, loose fitting clothing. - Jewelry must be removed prior to entering the operating room. Rings and piercings that are not removed may be cut off. BE PREPARED TO SIGN A WAIVER IF YOU ARE UNABLE TO REMOVE RINGS AND DO NOT WISH TO HAVE THEM CUT OFF - The hospital will not accept responsibility for valuables. - Please leave all valuables, including medications, at home the day of surgery. If you are going home after surgery, a licensed hack driver must drive you home. - NO public transportation without another adult. - We recommend that an adult stay with you for 24 hours following discharge. - We also recommend that you do not drive, make important decision, drink alcoholic beverages, or take any drugs that were not prescribed by your health care provider for at least 24 hours after your discharge time. Follow any additional instructions given to you from your surgeon. If you or anyone in your household have experienced Covid symptoms in the past week, please notify your surgeon or the nurse liaison at the phone number below for possible testing. Telephone instructions given to _VANESSA and asked if any additional questions and then verbalized understanding. Patient advised to call surgeon office or pre surgery nurse liaison [phone] if any additional questions.
--- NOTE | 2022-07-14 12:13 | WPDANESEPPF ---
Anes - Initial Pre Proc Eval Procedure: Operation Date: 07/15/22 13:30 Proposed Procedures p Laparoscopic Cholecystectomy - Vincent Santa MD Date/Time: 07/14/22 12:13 Surgeon: Vincent Santa MD Pre Op Diagnosis: Cholecystitis with Cholelithiasis Patient Data Age: 57 Gender: F Height: 1.68 m Weight: 97 kg Allergies Allergy/AdvReac Type Severity Reaction Status Date / Time No Known Allergies Allergy Verified 07/15/22 12:18 Home Medications Medication Instructions Recorded Confirmed Type omeprazole 20 mg capsule,delayed 40 mg PO DAILY 07/04/22 07/15/22 History release hydrocodone 5 mg-acetaminophen 325 1 - 2 tablet PO Q6H PRN pain #20 07/07/22 07/15/22 Rx mg tablet tabs Patient hx anesthesia problems: none Family hx anesthesia problems: none Results Review: All pre-operative results and documents have been reviewed as part of the pre-operative evaluation. [facility] Past Medical History Medical History (Updated 07/14/22 @ 12:14 by Perico López MD) Cholelithiasis Depression Obesity Surgical History Surgical History (Updated 07/04/22 @ 23:48 by Carlotta Zurita PA-C) History of appendectomy History of tubal ligation Family History Family History (Updated 07/04/22 @ 17:55 by Jigna Shea RN) Father Emphysema lung Grandparent Diabetes mellitus Social History Social History (Updated 07/04/22 @ 13:16 by Efren Winter DO) Smoking status: Never smoker Second hand tobacco smoke exposure: Yes (as a child) Alcohol intake: never Substance use: never Substance use type: does not use Living arrangements: with family Spiritual care concerns: No Anes - Eval Final PreProcedure Day of Procedure 07/14/22 12:13 Patient weight: obese Heart: regular rate and rhythm Lungs: clear to auscultation and normal air movement Airway: Mallampati scale class II Neurological: alert and oriented Last oral intake: >/= 8 hours ASA classification: II Emergent: no Anesthetic plan: proceed Anesthesia type and monitoring: general ETT Results Review: All pre-operative results and documents have been reviewed as part of the pre-operative evaluation. Informed Consent: The patient's anesthetic plan and its attendant risks and benefits were discussed with the patient/family/POA. Questions were solicited and answers provided to the satisfaction of the patient/family/POA.
[2022-07-15] VITALS (12 sets, daily range): BP systolic 98–146; BP diastolic 50–80; PULSE 68–88; RESP 14–20; TEMP 36.2–36.9; O2SAT 94–100
[2022-07-15] MEDS: LACTATED RINGERS 1,000 ML 30 ML IV CONT ×2 (12:45→17:45)
[2022-07-15] MEDS: ACETAMINOPHEN 500 MG TABLET 1000 MG PO (12:45)
[2022-07-15] MEDS: KETOROLAC 15 MG/ML VIAL (*BKC) IV PUSH (12:47)
--- NOTE | 2022-07-15 15:48 | WPDHPUPDATE1 ---
History and Physical Update Update Date/Time: 07/15/22 15:48 Laparoscopic cholecystectomy was unable to be done on Wednesday07/14/2022 as there was no available operating room time. Consequently the cholecystectomy is being done today, 07/15/2022. History and Physical has been reviewed, including an updated exam of the patient. There are NO changes in the patient's condition. Risks, benefits, and alternatives have been discussed and questions answered. Patient agrees to proceed with procedure.
[2022-07-15] MEDS: ceFAZolin 2 GM/D5W 50 ML 2 GM/50 ML BAG IVPB (15:56)
[2022-07-15] MEDS: HEMOSTATIC MATRIX (SURGIFLO with THROMBIN) KIT 1 KIT XX (17:16)
[2022-07-15] MEDS: BUPIVACAINE/EPINEPHRINE 0.25% 50 ML VIAL 30 ML INFILTRATE (17:17)
--- NOTE | 2022-07-15 18:00 | W.PM.PROC2 ---
Procedure Note - Detailed Date of Procedure 07/15/22 Pre-op Diagnosis Cholecystitis with Cholelithiasis Post-op Diagnosis Same (Acute and chronic cholecystitis, cholelithiasis) Procedure Performed Laparoscopic cholecystectomy Surgeon Vincent Santa MD [employer] Supervisor Chelsie GLOVER Anesthesia General and Local (0.25% Marcaine with epinephrine) Indications Patient was recently discharged from the hospital for right upper quadrant severe abdominal pain and imaging findings suggesting cholecystitis with gallstones. She was treated with antibiotics and improved. She took ciprofloxacin and metronidazole after discharge. Her pain had improved and she is taken to surgery now for laparoscopic cholecystectomy. Findings Severe acute and chronic cholecystitis. The gallbladder was quite distended. It was stuck to the anterior abdominal wall and adhesions of the omentum were stuck to the gallbladder as well. The gallbladder was decompressed and the contents were initially clear consistent with hydrops. Later in the surgery the gallbladder was entered and purulent fluid was noted to come from the gallbladder. There were multiple stones particularly large stone impacted in the neck of the gallbladder. No liver abnormalities or biliary ductal dilatation was noted. Description of Procedure Patient was taken to surgery and induced into general anesthesia. The abdomen is prepped and draped. Trocars were placed in the usual fashion using applied Medical optical trocars and local anesthetic. A 5 mm camera was used. The gallbladder was encased with adhesions and was stuck to the anterior abdominal wall. We dissected off the anterior abdominal wall in freed most of the omental adhesions. A laparoscopic aspirator was used in the gallbladder was decompressed. Clear fluid returned consistent with hydrops. The gallbladder wall was quite thickened and the gallbladder had been very distended prior to the aspirator decompressing the gallbladder. We removed the aspirator and then grasped the gallbladder. It was retracted anterosuperiorly. We removed the additional omental adhesions and free the gallbladder down to the infundibulum and triangle of Calot. We placed a grasper on the infundibulum and retracted it. There was a large stone in the neck of the gallbladder. With traction on the cholecystohepatic triangle, we dissected and found the cystic duct and cystic artery. We carefully dissected these structures. We then dissected the gallbladder off the liver at its lower 3rd. Critical view was achieved. I then securely clipped and divided the cystic artery. I continued the dissection of the gallbladder off the liver and then clipped and divided the cystic duct. We then continued our dissection of the gallbladder but it was severely and chronically inflamed to the liver. As we got to the upper 3rd of the gallbladder it was intrahepatic. There was no plane between the gallbladder and the liver. Entry into the gallbladder was made and purulent fluid came forth. We could also see several gallstones in the gallbladder. Dissecting the gallbladder off the liver basically entailed dissecting some liver surface attached to the gallbladder as we dissected out the fundus. Once the gallbladder was completely freed from the liver, it was placed in an Endo-Catch bag. It was then extricated through the epigastric trocar site. The gallbladder had many stones and its wall was quite thickened. The epigastric trocar site had to be enlarged both by blunt dissection as well as using a scalpel. Eventually we were able to extricate the gallbladder from the abdominal cavity. We replaced the epigastric trocar and then occluded the skin and subcutaneous with a towel clip. We were then able to reinsufflated and proceed with suctioning the old blood and attaining hemostasis of the gallbladder fossa. We suctioned out the blood and there was oozing from the liver bed. I used Surgiflo on the liver
[2022-07-15] MEDS: fentaNYL CITRATE INJ (*CRX) 100 MCG/2 ML VIAL 25 MCG IV PUSH ×4 (18:05→18:29)
[2022-07-15] MEDS: oxyCODONE HCL (*CRX) 5 MG TAB IR PO (18:48)
== END 2022-07-15 19:36 | disposition home or self-care (01) ==
PROVIDERS: PCP Family Medicine; Visit Provider Surgery
PROC: 0FT44ZZ Resection of Gallbladder, Percutaneous Endoscopic Approach (ICD-10-PCS; CPT 47562; principal; 2022-07-15 14:30)
DX: K80.10 Calculus of gallbladder with chronic cholecystitis without obstruction (principal); E66.9 Obesity, unspecified; Z68.32 Body mass index [BMI] 32.0-32.9, adult
CPT/HCPCS: 47562; 88304; A9270; C1713; J0690; J1100; J1170; J1885; J2250; J2405; J2704; J3010; J7120

== ENCOUNTER 2023-08-02 13:53 | Outpatient (CLI) | payer OTHER, SELFPAY ==
--- NOTE | ~2023-08-02 | MM_ITS ---
EXAMINATION: MM screening lidia BI w [facility] HISTORY: Screening mammogram TECHNIQUE: Craniocaudal and mediolateral oblique 3-D tomosynthesis images were obtained and synthetic 2-D images were generated. CAD analysis was submitted and interpreted. COMPARISON: 10/07/2021, 11/07/2019 bilateral screening mammogram examinations BREAST PARENCHYMAL COMPOSITION: The breasts are almost entirely fatty. FINDINGS: Chronic small circumscribed benign-appearing probable intramammary lymph nodes in the poste rior mid to upper outer right breast. The mammographic features including circumscribed margins and h kennedy sign are consistent with benign process. There is no evidence of suspicious mass, calcification, or architectural distortion to suggest malignancy in either breast. There has been no suspicious inte rval change. IMPRESSION: 1. No mammographic evidence of malignancy. 2. Recommend routine screening mammography in one year. BI-RADS Category 2: Benign finding(s). Reviewed, dictated and finalized at location A.
== END 2023-08-02 13:54 | disposition home or self-care (01) ==
LOC: ANHIMG 13:55
PROVIDERS: PCP Family Medicine; Visit Provider Family Medicine
DX: Z12.31 Encounter for screening mammogram for malignant neoplasm of breast (principal)
CPT/HCPCS: 77063; 77067

== ENCOUNTER 2024-10-05 10:13 | Outpatient (CLI) | payer OTHER, SELFPAY ==
--- NOTE | ~2024-10-05 | MM_ITS ---
EXAMINATION: MM screening lidia BI w [facility] HISTORY: Screening TECHNIQUE: Craniocaudal and mediolateral oblique 3-D tomosynthesis images were obtained and synthetic 2-D images were generated. CAD analysis was submitted and interpreted. COMPARISON: Comparison to multiple prior studies sequentially, with oldest reviewed study dated 11/07. BREAST PARENCHYMAL COMPOSITION: Not Dense: The breasts are almost entirely fatty. FINDINGS: There is no evidence of suspicious mass, calcification, or architectural distortion to sugg est malignancy in either breast. There has been no suspicious interval change. IMPRESSION: 1. No mammographic evidence of malignancy. 2. Recommend routine screening mammography in one year. BI-RADS Category 1: Negative Reviewed, dictated and finalized at location B. [employer]
== END 2024-10-05 10:14 | disposition home or self-care (01) ==
PROVIDERS: PCP Family Medicine; Visit Provider Nurse Practitioner Family
DX: Z12.31 Encounter for screening mammogram for malignant neoplasm of breast (principal)
CPT/HCPCS: 77063; 77067

== ENCOUNTER 2025-10-08 08:02 | Outpatient (CLI) | payer OTHER, SELFPAY ==
--- NOTE | ~2025-10-08 | MM_ITS ---
EXAMINATION: MM screening lidia BI w [facility] HISTORY: Screening TECHNIQUE: Craniocaudal and mediolateral oblique 3-D tomosynthesis images were obtained and synthetic 2-D images were generated. CAD analysis was submitted and interpreted. COMPARISON: Comparison to multiple prior studies sequentially, with oldest reviewed study dated , 09/07/2014 BREAST PARENCHYMAL COMPOSITION: Not Dense: The breasts are almost entirely fatty. FINDINGS: There is no evidence of suspicious mass, calcification, or architectural distortion to suggest malignancy in either breast. IMPRESSION: 1. No mammographic evidence of malignancy. 2. Recommend routine screening mammography in one year. BI-RADS Category 1: Negative Reviewed, dictated and finalized at location A. [employer]
== END 2025-10-08 08:03 | disposition home or self-care (01) ==
PROVIDERS: PCP Family Medicine; Visit Provider Nurse Practitioner Family
DX: Z12.31 Encounter for screening mammogram for malignant neoplasm of breast (principal)
CPT/HCPCS: 77063; 77067